=== PATIENT | female | born 1940 | race Caucasian/White ===

== ENCOUNTER → 2020-05-26 | Outpatient (CLI) | payer MEDICARE, MEDICAID ==
--- NOTE | 2020-05-26 13:12 | Diagnostic Imaging Report ---
INDICATION: Pain in buttocks and thighs after walking short distances, diminished pedal pulses. History of hypertension, stroke, hyperlipidemia and coronary artery disease.. TECHNIQUE: Segmental pulse pressures were performed of the upper and lower extremities. FINDINGS: Resting Doppler Blood Pressures RIGHT Brachial: 169 mmHg Ankle (Posterior Tibial): 190 mm Hg, Index: 1.12 Ankle (Dorsalis Pedis): 170 mm Hg, Index: 1.01 LEFT Brachial: 158 mmHg Ankle (Posterior Tibial): 178 mm Hg, Index: 1.05 Ankle (Dorsalis Pedis): 167 mm Hg, Index: 0.99 IMPRESSION: Ankle-brachial indices as above. Ankle-Brachial Index Diagnosis/Interpretation <=0.90 Peripheral Arterial Disease 0.91-0.99 Borderline 1.00-1.40 Normal >1.40 Concern for noncompressible arteries, (assoc with Diabetes Mellitus) Dictated by: Dictated on workstation # [id number]
== END ==
LOC: RAD 09:36
PROVIDERS: ATTEND Podiatrist Foot & Ankle Surgery
DX: I25.10 Atherosclerotic heart disease of native coronary artery without angina pectoris (principal); I10 Essential (primary) hypertension; M79.18 Myalgia, other site; M79.659 Pain in unspecified thigh; R09.89 Other specified symptoms and signs involving the circulatory and respiratory systems; Z86.73 Personal history of transient ischemic attack (TIA), and cerebral infarction without residual deficits
CPT/HCPCS: 93923